=== PATIENT | female | born 1990 | race African-American/Black ===

== ENCOUNTER 2020-09-05 16:11 | Outpatient (CLI) | payer OTHER ==
[2020-09-05 16:57] LABS: ABSOLUTE EOSINOPHILS # (AUTO) 0.1 10^3/uL (0.0-0.6); ABSOLUTE LYMPHOCYTES (AUTO) 1.7 10^3/uL (0.5-4.7); ABSOLUTE MONOCYTES (AUTO) 0.5 10^3/uL (0.1-1.4); ABSOLUTE NEUT (AUTO) 6.1 10^3/uL (1.7-8.2); BASOPHILS % (AUTO) 0.3 % (0-2); EOSINOPHILS % (AUTO) 0.9 % (0-6); HEMATOCRIT 34.7 % (36.0-47.0); HEMOGLOBIN 11.6 g/dL (12.0-15.5); LYMPHOCYTES % (AUTO) 20.4 % (13-45); MEAN CORPUSCULAR HEMOGLOBIN 28.3 pg (27.0-33.4); MEAN CORPUSCULAR HGB CONC 33.5 g/dL (32.0-36.0); MEAN CORPUSCULAR VOLUME 84 fl (80-97); MONOCYTES % (AUTO) 6.1 % (3-13); PLATELET COUNT 201 10^3/uL (150-450); RED BLOOD COUNT 4.12 10^6/uL (3.72-5.28); RED CELL DISTRIBUTION WIDTH 14.3 % (11.5-14.0); SEGMENTED NEUTROPHILS % (AUTO) 72.3 % (42-78); TOTAL CELLS COUNTED % (AUTO) 100 %; WHITE BLOOD COUNT 8.4 10^3/uL (4.0-10.5)
[2020-09-05 17:04] LABS: APPEARANCE,URINE CLOUDY; BILIRUBIN,URINE NEGATIVE (NEGATIVE); COLOR,URINE YELLOW; GLUCOSE, URINE NEGATIVE (NEGATIVE); KETONES,URINE TRACE mg/dL (NEGATIVE); LEUKOCYTE ESTERASE,URINE MODERATE (NEGATIVE); NITRITE,URINE NEGATIVE (NEGATIVE); PROTEIN,URINE 30 mg/dL (NEGATIVE); URINE SPECIFIC GRAVITY 1.018
[2020-09-05 17:18] LABS: URINE AMPHETAMINES SCREEN NEGATIVE; URINE BARBITURATES SCREEN NEGATIVE; URINE BENZODIAZEPINES SCREEN NEGATIVE; URINE COCAINE SCREEN NEGATIVE; URINE MARIJUANA (THC) SCREEN NEGATIVE; URINE METHADONE SCREEN NEGATIVE; URINE PHENCYCLIDINE SCREEN NEGATIVE
[2020-09-05 17:21] LABS: CALCIUM 9.7 mg/dL (8.4-10.2)
[2020-09-05 17:22] LABS: ALBUMIN 3.3 g/dL (3.5-5.0); ALKALINE PHOSPHATASE 73 U/L (38-126); ASPARTATE AMINO TRANSFERASE 24 U/L (14-36); BILIRUBIN,DIRECT 0.2 mg/dL (0.0-0.4); BILIRUBIN,TOTAL 0.3 mg/dL (0.2-1.3); BLOOD UREA NITROGEN 9 mg/dL (7-20); CARBON DIOXIDE 19 mmol/L (22-30); GLUCOSE 143 mg/dL (75-110); TOTAL PROTEIN 5.9 g/dL (6.3-8.2); URIC ACID 4.7 mg/dL (2.5-6.2)
[2020-09-05 17:23] LABS: UR PRO/CREAT RATIO RESULT 0.1 mg/mg (0.0-0.2); URINE CREATININE 248.1 mg/dL (16-327); URINE PROTEIN 13.8 mg/dL (<12)
[2020-09-05 17:28] LABS: ANION GAP 10 (5-19); CHLORIDE 107 mmol/L (98-107)
[2020-09-05] MEDS ORDERED: LABETALOL HCL 200 MG TABLET PO ONE ×2 (18:05→18:59)
[2020-09-05] MEDS ORDERED: LABETALOL HCL 200 MG TABLET ONE (18:14)
== END 2020-09-05 19:00 | disposition home or self-care (01) ==
LOC: LC 16:11
PROVIDERS: ATTEND Obstetrics & Gynecology
DX: O14.93 Unspecified pre-eclampsia, third trimester (principal); Z3A.31 31 weeks gestation of pregnancy
CPT/HCPCS: 36415; 80053; 80307; 81001; 82570; 83615; 84156; 84550; 85025

== ENCOUNTER 2020-09-18 16:07 | Observation (INO) | payer OTHER ==
[2020-09-18] MEDS ORDERED: ACETAMINOPHEN 325 MG TABLET PO PRN (16:11)
[2020-09-18] MEDS ORDERED: NIFEDIPINE 30 MG TAB.ER.24 PO ONE ×2 (16:46→18:04)
[2020-09-18] MEDS ORDERED: HYDRALAZINE HCL INJ/PF 20 MG/1 ML SDV IV ONE ×3 (16:46→19:06)
[2020-09-18] MEDS ORDERED: HYDRALAZINE HCL INJ/PF 20 MG/1 ML SDV ONE ×2 (16:48→19:08)
[2020-09-18] MEDS ORDERED: BETAMET ACET/BETAMET NA INJ 6 MG/1 ML IM ONE (16:57)
[2020-09-18 17:00] LABS: APPEARANCE,URINE SLIGHTLY-CLOUDY; BILIRUBIN,URINE NEGATIVE (NEGATIVE); COLOR,URINE YELLOW; GLUCOSE, URINE NEGATIVE (NEGATIVE); KETONES,URINE NEGATIVE (NEGATIVE); LEUKOCYTE ESTERASE,URINE MODERATE (NEGATIVE); NITRITE,URINE NEGATIVE (NEGATIVE); PROTEIN,URINE NEGATIVE (NEGATIVE); URINE SPECIFIC GRAVITY 1.013; UROBILINOGEN,URINE NEGATIVE mg/dL (<2.0)
[2020-09-18 17:11] LABS: URINE AMPHETAMINES SCREEN NEGATIVE; URINE BARBITURATES SCREEN NEGATIVE; URINE BENZODIAZEPINES SCREEN NEGATIVE; URINE COCAINE SCREEN NEGATIVE; URINE MARIJUANA (THC) SCREEN NEGATIVE; URINE METHADONE SCREEN NEGATIVE; URINE PHENCYCLIDINE SCREEN NEGATIVE
[2020-09-18 17:15] LABS: UR PRO/CREAT RATIO RESULT 0.1 mg/mg (0.0-0.2); URINE CREATININE 104.2 mg/dL (16-327); URINE PROTEIN 11.6 mg/dL (<12)
[2020-09-18 17:16] LABS: HEMATOCRIT 35.6 % (36.0-47.0); HEMOGLOBIN 11.7 g/dL (12.0-15.5); MEAN CORPUSCULAR HEMOGLOBIN 28.1 pg (27.0-33.4); MEAN CORPUSCULAR HGB CONC 32.9 g/dL (32.0-36.0); MEAN CORPUSCULAR VOLUME 85 fl (80-97); PLATELET COUNT 181 10^3/uL (150-450); RED BLOOD COUNT 4.17 10^6/uL (3.72-5.28); RED CELL DISTRIBUTION WIDTH 14.9 % (11.5-14.0); WHITE BLOOD COUNT 10.2 10^3/uL (4.0-10.5)
[2020-09-18 17:40] LABS: ALBUMIN 3.5 g/dL (3.5-5.0); ALKALINE PHOSPHATASE 88 U/L (38-126); ANION GAP 9 (5-19); ASPARTATE AMINO TRANSFERASE 33 U/L (14-36); BILIRUBIN,TOTAL 0.2 mg/dL (0.2-1.3); BLOOD UREA NITROGEN 10 mg/dL (7-20); CALCIUM 9.8 mg/dL (8.4-10.2); CARBON DIOXIDE 21 mmol/L (22-30); CHLORIDE 107 mmol/L (98-107); GLUCOSE 79 mg/dL (75-110); POTASSIUM 4.5 mmol/L (3.6-5.0); TOTAL PROTEIN 6.2 g/dL (6.3-8.2); URIC ACID 5.5 mg/dL (2.5-6.2)
[2020-09-18] MEDS ORDERED: BETAMET ACET/BETAMET NA INJ 6 MG/1 ML ONE (17:41)
--- NOTE | 2020-09-18 18:04 | RADIOLOGY REPORT (SQ) ---
EXAM DESCRIPTION: U/S OB LIMITED IMAGES COMPLETED DATE/TIME: 09/18/2020 5:46 pm REASON FOR STUDY: growth, DIONY, presentation COMPARISON: None. TECHNIQUE: Limited transabdominal grayscale ultrasound for evaluation of specific requested obstetri jerson parameters. LIMITATIONS: None. FINDINGS: CERVICAL LENGTH: 2.8 cm. Closed. DIONY: 18.6 cm. Cm. FHR: 143 beats per minute. PRESENTATION: Cephalic. PLACENTA: Posterior, grade 1. ANATOMY: Not assessed OTHER: Intrauterine gestation of 33 weeks 3 days. IMPRESSION: LIMITED OBSTETRICAL ULTRASOUND WITH MEASURED PARAMETERS DELINEATED ABOVE. Trimester of : Third trimester - 28 weeks to delivery. TECHNICAL DOCUMENTATION: JOB ID: [id number] 2010 [employer]- All Rights Reserved Reading location - IP/workstation name: [email or web address]
--- NOTE | 2020-09-18 18:49 | Admission Physical ---
Datetime Report Generated by CPN: 09/18/2020 18:49 CURRENT ADMISSION Chief Complaint: Sent from OB Office for Evaluation and Treatment - Please Specify Indication for Induction: Not Applicable Admit Impression : , Intrauterine ; No Active Labor; Intact Membranes; Observation/Evaluation Admit Plan: Admit to Unit; Observation/Evaluation ALLERGIES Medication Allergies: No Medication Allergies: No Known Allergies (09/05/2020) Latex: No Latex Allergies OBSTETRICAL HISTORY EDC: 11/03/2020 00:00 : 2 Para: 1 Term: 0 : 1 SAB: 0 IAB: 0 Ectopic: 0 Livin Cesareans: 1 VBACs: 0 Multiple Births: 0 Gestational Diabetes: Yes Rh Sensitization: No Incompetent Cervix: No REYNALDO: No Infertility: No ART Treatment: No Uterine Anomaly: No IUGR: No Hx Previous C/S: No Macrosomia: No Hx Loss/Stillborn: No PIH: No Hx : No Placenta Previa/Abruption: No Depression/PP Depression: No PTL/PROM: No Post Hemorrhage: No Current Procedures: Ultrasound; NST Obstetrical History Comments: G1- c/section 35.5wks severe pre-e G2- CHTN, pre-e SEE RECORDS Alcohol: No Marijuana : No Cocaine: No Other Illicit Drugs: No Cigarettes: Never Smoker. [id number] MEDICAL HISTORY Diabetes: No Diabetes Type: Gestational Diabetes Blood Transfusion: No Pulmonary Disease (Asthma, TB): No Breast Disease: No Hypertension: Yes Founder And President Surgery: No Heart Disease: No Hosp/Surgery: Yes Autoimmune Disorder: No Anesthetic Complications: No Kidney Disease: No Abnormal Pap Smear: No Neuro/Epilepsy: No Psychiatric Disorders: No Other Medical Diseases: No Hepatitis/Liver Disease: No Significant Family History: No Varicosities/Phlebitis: No Trauma/Violence : No Thyroid Dysfunction: No Medical History Comments: umbilical hernia repair as a child, c/s INFECTIOUS HISTORY Gonorrhea: No Genital Herpes: No Chlamydia: No Tuberculosis: No Syphilis: No Hepatitis: No HIV/AIDS Exposure: No Rash or Viral Illness: No HPV: No PHYSICAL EXAM General: Normal HEENT: Normal Neurologic: Normal Thyroid: Deferred Heart: Normal Lungs: Normal Breast: Deferred Back: Normal Abdomen: Normal Genitourinary Exam: Normal Extremities: Normal DTRs: Normal Pelvic Type: Adequate Vital Signs: Reviewed FETUS A EGA: 33.3 Monitoring: External US FHR- Baseline: 130 Variability: Moderate 6-25bpm Accelerations: 15X15 Decelerations: None FHR Category: Category I Presentation: Vertex Admit Comment: 29yo at 33+3ega presents from the office for elevated BP. Pt began her care in [place] and documentation of CHTN noted with elevated BPs mild range on several occasions prior to 20wks. Also noted in transfer records was patient with trace proteinuria prior to 20wks. This is c/w diagnosis of CHTN. On 09/03 she was started on Labetolol for HTN and baseline 24 hr UTP was 405. No baseline 24 hour UTP available from [place] but this appears c/w with CHTN with superimposed preE. She also has a h/o C/s T 35.5 for IUGR/oligo and Severe PreE in 2012. On presentation severe range BPs with good response to addition of po Procardia and 2 IV doses of Hydralazine (5mg x 1 then 10 mg x 1). EFW on 09/03 was 1991g and today is 2184 so adequate interval growth. also c/b GDMA1. BMZ given and will need repeat in 24 hours and will continue to monitor accuchks and add meds if needed. Reviewed case with Dr. Hopkins with MFM and ok to remain here since improved BPs on meds. Also if can remain stable on po meds adjustment and not symptomatic with close outpatient management may be able to proceed past 34wks with delivery definitely at 37wks (sooner if symptoms, unastable BPs or any other concerns). Admit for observation and close monitoring. She desires Repeat C/s and bilateral tubal ligation. She is aware that tubal ligation is permanent form of sterilization and not reversible contraception. She persists indesire for Repeat C/S and BTL and consents signed. PLANS FOR LABOR AND DELIVERY Labor and Delivery: None Pain Management: Spinal Feeding Preference: Breast Benefit of Breast Feed Discussed: Yes Circumcision: Yes INFORMED CONSENT Informed Consent Obtained: Section Delivery; Risks, Benefits and Alternatives Discussed Signature: with User ID: [email or web address]
[2020-09-18] MEDS ORDERED: LABETALOL HCL 200 MG TABLET ONE (18:50)
[2020-09-18] MEDS: LABETALOL HCL 200 MG TABLET PO SCH (18:52)
[2020-09-18 20:27] LABS: CHLAM PCR NOT DETECTED (NOT DETECT)
[2020-09-18] MEDS ORDERED: ACETAMINOPHEN 325 MG TABLET ONE (23:42)
[2020-09-19] MEDS ORDERED: LABETALOL HCL 200 MG TABLET ONE ×3 (05:56→17:23)
[2020-09-19] MEDS: LABETALOL HCL 200 MG TABLET PO SCH (06:03)
--- NOTE | 2020-09-19 10:26 | L&D Progress Notes ---
PROGRESS NOTES Datetime Report Generated by CPN: 09/19/2020 10:25 PROGRESS NOTE Informed Consent Obtained: Section Delivery; Risks, Benefits and Alternatives Discussed Comment: She reports she is feeling well today. Currently her 24 prot and second steroid shot are pending today. LAST VAGINAL EXAM-NURSING Nursing Exam Contractions: pt. denies feeling ctn's FETUS A Presentation: Vertex SIGNATURE SIGNATURE: [id number];[id number] Signature: with User ID: [email or web address]
[2020-09-19] MEDS ORDERED: LABETALOL HCL 200 MG TABLET PO SCH (14:15)
[2020-09-19 16:51] LABS: 24 HOUR URINE PROTEIN RESULT 344 mg/day (42-225); URINE PROTEIN 16.8 mg/dL (<12)
--- NOTE | 2020-09-19 17:17 | PDOC DISCHARGE SUMMARY ---
Impression - Admit/DC Date/PCP Admission Date/Primary Care Provider: 09/18/20 16:59 KLEVER CRESPO MD Discharge Date: 09/19/20 - Discharge Diagnosis (1) Chronic hypertension with superimposed preeclampsia Is this a current diagnosis for this admission?: Yes (2) History of delivery, currently Is this a current diagnosis for this admission?: Yes - Assessment Summary: Patient presented for evaluation for preeclampsia. Her 24-hour urine protein is completed and is below the threshold for preeclampsia at this time. Her blood pressures are adequately treated on Procardia and labetalol. She has been given betamethasone for lung maturity. She will be discharged at this time with close office follow-up. We will have her follow-up Monday or Monday in the office. - Additional Information Resuscitation Status: Full Code Discharge Diet: As Tolerated Discharge Activity: Balance Activity w/Rest Referrals: KLEVER CRESPO MD [Primary Care Provider] - Home Medications: Labetalol HCl [Normodyne 200 mg Tablet] 200 mg PO Q12 09/18/20 Prenat 115/Iron Fum/Folic/Dss [ 19 Tablet] 1 tab PO DAILY 09/18/20 Additional Information: Follow-up Monday or Monday in the office History of Present Illiness History of Present Illness: LEFTY SIMMONS is a 29 year old female Physical Exam - Physical Exam Vital Signs: Intake & Output 09/18/20 09/19/20 09/20/20 06:59 06:59 05:59 Weight 113.5 kg Results Laboratory Results: WBC 10.2 10^3/uL (4.0-10.5) 09/18/20 17:01 RBC 4.17 10^6/uL (3.72-5.28) 09/18/20 17:01 Hgb 11.7 g/dL (12.0-15.5) L 09/18/20 17:01 Hct 35.6 % (36.0-47.0) L 09/18/20 17:01 MCV 85 fl (80-97) 09/18/20 17:01 MCH 28.1 pg (27.0-33.4) 09/18/20 17:01 MCHC 32.9 g/dL (32.0-36.0) 09/18/20 17:01 RDW 14.9 % (11.5-14.0) H 09/18/20 17:01 Plt Count 181 10^3/uL (150-450) 09/18/20 17:01 Sodium 136.6 mmol/L (137-145) L 09/18/20 17:01 Potassium 4.5 mmol/L (3.6-5.0) 09/18/20 17:01 Chloride 107 mmol/L (98-107) 09/18/20 17:01 Carbon Dioxide 21 mmol/L (22-30) L 09/18/20 17:01 Anion Gap 9 (5-19) 09/18/20 17:01 BUN 10 mg/dL (7-20) 09/18/20 17:01 Creatinine 0.68 mg/dL (0.52-1.25) 09/18/20 17:01 Est GFR ( Amer) > 60 (>60) 09/18/20 17:01 Est GFR (MDRD) Non-Af > 60 (>60) 09/18/20 17:01 Glucose 79 mg/dL (75-110) 09/18/20 17:01 POC Glucose 74 mg/dL (70-110) 09/18/20 18:11 Uric Acid 5.5 mg/dL (2.5-6.2) 09/18/20 17:01 Calcium 9.8 mg/dL (8.4-10.2) 09/18/20 17:01 Total Bilirubin 0.2 mg/dL (0.2-1.3) 09/18/20 17:01 Direct Bilirubin 0.0 mg/dL (0.0-0.4) 09/18/20 17:01 Neonat Total Bilirubin Not Reportable 09/18/20 17:01 Neonat Direct Bilirubin Not Reportable 09/18/20 17:01 Neonat Indirect Bili Not Reportable 09/18/20 17:01 AST 33 U/L (14-36) 09/18/20 17:01 ALT 30 U/L (<35) 09/18/20 17:01 Alkaline Phosphatase 88 U/L (38-126) 09/18/20 17:01 Lactate Dehydrogenase 196 U/L (120-246) 09/18/20 17:01 Total Protein 6.2 g/dL (6.3-8.2) L 09/18/20 17:01 Albumin 3.5 g/dL (3.5-5.0) 09/18/20 17:01 Urine Color YELLOW 09/18/20 16:18 Urine Appearance SLIGHTLY-CLOUDY 09/18/20 16:18 Urine pH 6.0 (5.0-9.0) 09/18/20 16:18 Ur Specific Arion 1.013 09/18/20 16:18 Urine Protein NEGATIVE mg/dL (NEGATIVE) 09/18/20 16:18 Urine Glucose (UA) NEGATIVE mg/dL (NEGATIVE) 09/18/20 16:18 Urine Ketones NEGATIVE mg/dL (NEGATIVE) 09/18/20 16:18 Urine Blood NEGATIVE (NEGATIVE) 09/18/20 16:18 Urine Nitrite NEGATIVE (NEGATIVE) 09/18/20 16:18 Urine Bilirubin NEGATIVE (NEGATIVE) 09/18/20 16:18 Urine Urobilinogen NEGATIVE mg/dL (<2.0) 09/18/20 16:18 Ur Leukocyte Esterase MODERATE (NEGATIVE) H 09/18/20 16:18 Urine WBC (Auto) 7 /HPF 09/18/20 16:18 Urine RBC (Auto) 1 /HPF 09/18/20 16:18 Urine Bacteria (Auto) TRACE /HPF 09/18/20 16:18 Squamous Epi Cells Auto 10 /HPF 09/18/20 16:18 Urine Mucus (Auto) RARE /LPF 09/18/20 16:18 Ur 24 Hour Volume 2050 mL 09/19/20 16:18 Urine Creatinine 104.2 mg/dL (16-327) 09/18/20 16:18 Ur Total Protein 24 Hr 344 mg/day (42-225) H 09/19/20 16:18 Protein/Creatinin Ratio 0.1 mg/mg (0.0-0.2) 09/18/20 16:18 Urine Total Protein 16.8 mg/dL (<12) H 09/19/20 16:18 Urine Ascorbic Acid NEGATIVE (NEGATIVE) 09/18/20 16:18 Urine Opiates Screen NEGATIVE 09/18/20 16:18 Urine Methadone Screen NEGATIVE 09/18/20 16:18 Ur Barbiturates Screen NEGATIVE 09/18/20 16:18 Ur Phencyclidine Scrn NEGATIVE 09/18/20 16:18 Ur Amphetamines Screen NEGATIVE 09/18/20 16:18 U Benzodiazepines Scrn NEGATIVE 09/18/20 16:18 Urine Cocaine Screen NEGATIVE 09/18/20 16:18 U Marijuana (THC) Screen NEGATIVE 09/18/20 16:18 Chlamydia DNA (PCR) NOT DETECTED (NOT DETECT) 09/18/20 18:35 N.gonorrhoeae DNA (PCR) NOT DETECTED (NOT DETECT) 09/18/20 18:35 Blood Type A POSITIVE 09/18/20 17:01 Antibody Screen NEGATIVE 09/18/20 17:01 Impressions: Obstetrics Ultrasound 09/18/20 16:50 IMPRESSION: LIMITED OBSTETRICAL ULTRASOUND WITH MEASURED PARAMETERS DELINEATED ABOVE. Trimester of : Third trimester - 28 weeks to delivery. Stroke Is this a Stroke Patient?: No Acute Heart Failure Is this a Heart Failure Patient?: No
[2020-09-19] MEDS ORDERED: NIFEDIPINE 30 MG TAB.ER.24 PO ONE (17:23)
[2020-09-19] MEDS ORDERED: BETAMET ACET/BETAMET NA INJ 6 MG/1 ML ONE (17:25)
[2020-09-19] MEDS ORDERED: BETAMET ACET/BETAMET NA INJ 6 MG/1 ML IM ONE (17:45)
[2020-09-19] MEDS ORDERED: BETAMET ACET/BETAMET NA INJ 6 MG/1 ML IM SCH (17:45)
[2020-09-19] MEDS ORDERED: NIFEDIPINE 30 MG TAB.ER.24 PO SCH (18:00)
== END 2020-09-19 17:55 | disposition home or self-care (01) ==
LOC: LC 16:07 → LR 16:59
PROVIDERS: ADMIT Student in an Organized Health Care Education/Training Program; ATTEND Student in an Organized Health Care Education/Training Program
DX: O11.3 Pre-existing hypertension with pre-eclampsia, third trimester (principal); O34.219 Maternal care for unspecified type scar from previous cesarean delivery; O24.419 Gestational diabetes mellitus in pregnancy, unspecified control; Z3A.33 33 weeks gestation of pregnancy; Z79.899 Other long term (current) drug therapy; Z87.59 Personal history of other complications of pregnancy, childbirth and the puerperium
CPT/HCPCS: 59025; 86900; 86901; 36415; 86850; 82962; 83615; 84156 ×2; 84550; 82570; 85027; 87077; 86592; 80053; 81001; 87081; 80307; 87491; 87591; 76815; G0378 ×2; G0379; J0360; J0702 ×2

== ENCOUNTER 2020-09-25 10:23 | Outpatient (CLI) | payer OTHER ==
[2020-09-25 11:15] LABS: APPEARANCE,URINE CLEAR; BILIRUBIN,URINE NEGATIVE (NEGATIVE); COLOR,URINE STRAW; GLUCOSE, URINE NEGATIVE (NEGATIVE); KETONES,URINE NEGATIVE (NEGATIVE); LEUKOCYTE ESTERASE,URINE NEGATIVE (NEGATIVE); NITRITE,URINE NEGATIVE (NEGATIVE); PROTEIN,URINE NEGATIVE (NEGATIVE); URINE SPECIFIC GRAVITY 1.009; UROBILINOGEN,URINE NEGATIVE mg/dL (<2.0)
[2020-09-25 11:36] LABS: URINE AMPHETAMINES SCREEN NEGATIVE; URINE BARBITURATES SCREEN NEGATIVE; URINE BENZODIAZEPINES SCREEN NEGATIVE; URINE COCAINE SCREEN NEGATIVE; URINE MARIJUANA (THC) SCREEN NEGATIVE; URINE METHADONE SCREEN NEGATIVE; URINE PHENCYCLIDINE SCREEN NEGATIVE
[2020-09-25 11:37] LABS: ALBUMIN 3.3 g/dL (3.5-5.0); ALKALINE PHOSPHATASE 89 U/L (38-126); ANION GAP 10 (5-19); ASPARTATE AMINO TRANSFERASE 29 U/L (14-36); BILIRUBIN,TOTAL 0.1 mg/dL (0.2-1.3); BLOOD UREA NITROGEN 17 mg/dL (7-20); CARBON DIOXIDE 20 mmol/L (22-30); CHLORIDE 106 mmol/L (98-107); GLUCOSE 78 mg/dL (75-110); POTASSIUM 4.5 mmol/L (3.6-5.0); TOTAL PROTEIN 6.1 g/dL (6.3-8.2); URIC ACID 5.2 mg/dL (2.5-6.2)
[2020-09-25 11:40] LABS: UR PRO/CREAT RATIO RESULT 0.2 mg/mg (0.0-0.2); URINE CREATININE 55.7 mg/dL (16-327); URINE PROTEIN 13.1 mg/dL (<12)
[2020-09-25 12:44] LABS: HEMATOCRIT 36.2 % (36.0-47.0); HEMOGLOBIN 12.2 g/dL (12.0-15.5); MEAN CORPUSCULAR HEMOGLOBIN 28.4 pg (27.0-33.4); MEAN CORPUSCULAR HGB CONC 33.7 g/dL (32.0-36.0); MEAN CORPUSCULAR VOLUME 85 fl (80-97); PLATELET COUNT 207 10^3/uL (150-450); RED BLOOD COUNT 4.29 10^6/uL (3.72-5.28); RED CELL DISTRIBUTION WIDTH 14.8 % (11.5-14.0); WHITE BLOOD COUNT 10.9 10^3/uL (4.0-10.5)
--- NOTE | 2020-09-25 13:13 | Non Stress Test Report ---
Non Stress Test Datetime Report Generated by CPN: 09/25/2020 13:13 DEMOGRAPHIC EGA NST: 34.3 INDICATION Indication for Study (NST) Other: pre-e VITAL SIGNS Temperature - NST: 98.5 Pulse - NST: 73 RESP - NST: 22 NBPSYS NST: 126 NBPDIA NST: 68 MONITORING Monitor Explained: Monitor Explained; Test Explained; Patient Verbalized Understanding Time on Monitor: 09/25/2020 10:41 Time off Monitor: 09/25/2020 11:29 NST Duration: 48 NST INTERVENTIONS NST Interventions: None Physician Notified NST: K Barragan CNM BABY A: [id number] BABY A Movement : Present Contraction Frequency : none FHR Baseline : 135 Accelerations : 15X15 Decelerations : None Variability : Moderate 6-25bpm NST Review: Meets Criteria for Reactive NST NST Review and Verified By : FANTA Bell Results: Reactive NST REPORT Report Trigger: Send Report
== END 2020-09-25 13:17 | disposition home or self-care (01) ==
LOC: LC 10:23
PROVIDERS: ATTEND Student in an Organized Health Care Education/Training Program
DX: O13.3 Gestational [pregnancy-induced] hypertension without significant proteinuria, third trimester (principal); O24.419 Gestational diabetes mellitus in pregnancy, unspecified control; Z3A.34 34 weeks gestation of pregnancy
CPT/HCPCS: 36415; 59025; 80053; 80307; 81005; 82570; 83615; 84156; 84550; 85027

== ENCOUNTER 2020-09-26 14:32 | Outpatient (CLI) | payer OTHER ==
[2020-09-26 15:20] LABS: URINE PROTEIN 11.4 mg/dL (<12)
[2020-09-26 15:29] LABS: 24 HOUR URINE PROTEIN RESULT 280 mg/day (42-225)
--- NOTE | 2020-09-26 15:30 | Non Stress Test Report ---
Non Stress Test Datetime Report Generated by CPN: 09/26/2020 15:29 DEMOGRAPHIC Test Number: 1 EGA NST: 34.4 VITAL SIGNS Temperature - NST: 98.2 Pulse - NST: 76 RESP - NST: 20 NBPSYS NST: 120 NBPDIA NST: 66 MONITORING Monitor Explained: Monitor Explained; Test Explained; Patient Verbalized Understanding Time on Monitor: 09/26/2020 14:50 Time off Monitor: 09/26/2020 15:18 NST Duration: 28 NST INTERVENTIONS NST Interventions: PO Hydration; Reposition Patient Physician Notified NST: Mata MD BABY A: [id number] BABY A Movement : Present Contraction Frequency : None FHR Baseline : 135 Accelerations : 15X15 Decelerations : None Variability : Moderate 6-25bpm NST Review: Meets Criteria for Reactive NST NST Review and Verified By : Sisi Newman RN NST Results: Reactive NST COMMENTS NST Comments: MD on unit reviewing FHT strip NST REPORT Report Trigger: Send Report
== END 2020-09-26 15:25 | disposition home or self-care (01) ==
LOC: LC 14:32
PROVIDERS: ATTEND Obstetrics & Gynecology Gynecology
DX: O13.3 Gestational [pregnancy-induced] hypertension without significant proteinuria, third trimester (principal); Z3A.34 34 weeks gestation of pregnancy
CPT/HCPCS: 59025; 84156

== ENCOUNTER 2020-10-02 15:09 | Outpatient (CLI) | payer OTHER ==
[2020-10-02 15:46] LABS: ABSOLUTE BASOPHILS # (AUTO) 0.1 10^3/uL (0.0-0.2); ABSOLUTE EOSINOPHILS # (AUTO) 0.1 10^3/uL (0.0-0.6); ABSOLUTE LYMPHOCYTES (AUTO) 2.5 10^3/uL (0.5-4.7); ABSOLUTE MONOCYTES (AUTO) 0.8 10^3/uL (0.1-1.4); BASOPHILS % (AUTO) 0.9 % (0-2); HEMATOCRIT 37.5 % (36.0-47.0); HEMOGLOBIN 12.4 g/dL (12.0-15.5); LYMPHOCYTES % (AUTO) 23.7 % (13-45); MEAN CORPUSCULAR HGB CONC 33.1 g/dL (32.0-36.0); MEAN CORPUSCULAR VOLUME 85 fl (80-97); PLATELET COUNT 220 10^3/uL (150-450); RED BLOOD COUNT 4.44 10^6/uL (3.72-5.28); RED CELL DISTRIBUTION WIDTH 14.9 % (11.5-14.0); SEGMENTED NEUTROPHILS % (AUTO) 66.4 % (42-78); TOTAL CELLS COUNTED % (AUTO) 100 %; WHITE BLOOD COUNT 10.5 10^3/uL (4.0-10.5)
--- NOTE | 2020-10-02 16:05 | Non Stress Test Report ---
Non Stress Test Datetime Report Generated by CPN: 10/02/2020 16:05 DEMOGRAPHIC EGA NST: 35.3 INDICATION Indication for Study (NST) Other: LC from [facility] VITAL SIGNS Temperature - NST: 98.8 Pulse - NST: 75 RESP - NST: 18 NBPSYS NST: 139 NBPDIA NST: 84 MONITORING Monitor Explained: Monitor Explained; Test Explained; Patient Verbalized Understanding Time on Monitor: 10/02/2020 15:40 Time off Monitor: 10/02/2020 16:03 NST Duration: 23 NST INTERVENTIONS NST Interventions: PO Hydration Physician Notified NST: Dr Hogue BABY A: [id number] BABY A Movement : Present Contraction Frequency : x2 FHR Baseline : 125 Accelerations : 15X15 Decelerations : None Variability : Moderate 6-25bpm NST Review: Meets Criteria for Reactive NST NST Review and Verified By : A. Sedro Woolley RN NST Results: Reactive NST COMMENTS NST Comments: MD on unit NST REPORT Report Trigger: Send Report
[2020-10-02 16:06] LABS: URINE AMPHETAMINES SCREEN NEGATIVE; URINE BARBITURATES SCREEN NEGATIVE; URINE BENZODIAZEPINES SCREEN NEGATIVE; URINE COCAINE SCREEN NEGATIVE; URINE MARIJUANA (THC) SCREEN NEGATIVE; URINE METHADONE SCREEN NEGATIVE; URINE PHENCYCLIDINE SCREEN NEGATIVE
[2020-10-02 16:08] LABS: ALBUMIN 3.6 g/dL (3.5-5.0); ALKALINE PHOSPHATASE 105 U/L (38-126); ANION GAP 9 (5-19); ASPARTATE AMINO TRANSFERASE 28 U/L (14-36); BILIRUBIN,TOTAL 0.2 mg/dL (0.2-1.3); BLOOD UREA NITROGEN 10 mg/dL (7-20); CALCIUM 9.9 mg/dL (8.4-10.2); CARBON DIOXIDE 18 mmol/L (22-30); CHLORIDE 108 mmol/L (98-107); GLUCOSE 79 mg/dL (75-110); POTASSIUM 4.6 mmol/L (3.6-5.0); TOTAL PROTEIN 6.6 g/dL (6.3-8.2); URIC ACID 5.6 mg/dL (2.5-6.2)
[2020-10-02 16:10] LABS: UR PRO/CREAT RATIO RESULT 0.2 mg/mg (0.0-0.2); URINE CREATININE 98.4 mg/dL (16-327); URINE PROTEIN 15.4 mg/dL (<12)
== END 2020-10-02 16:27 | disposition home or self-care (01) ==
LOC: LC 15:09
PROVIDERS: ATTEND Student in an Organized Health Care Education/Training Program
DX: O24.410 Gestational diabetes mellitus in pregnancy, diet controlled (principal); O16.3 Unspecified maternal hypertension, third trimester; Z3A.35 35 weeks gestation of pregnancy
CPT/HCPCS: 36415; 59025; 80053; 80307; 82570; 83615; 84156; 84550; 85025

== ENCOUNTER 2020-10-03 16:38 | Outpatient (CLI) | payer OTHER ==
[2020-10-03 17:53] LABS: 24 HOUR URINE PROTEIN RESULT 222 mg/day (42-225); URINE PROTEIN 12.9 mg/dL (<12)
--- NOTE | 2020-10-03 18:44 | Non Stress Test Report ---
Non Stress Test Datetime Report Generated by CPN: 10/03/2020 18:43 DEMOGRAPHIC EGA NST: 35.4 URINE RESULTS Urine Protein, NST: Positive Urine Ketones - NST: Negative Urine Glucose - NST: Negative Urine Blood - NST: Negative MONITORING Monitor Explained: Monitor Explained; Test Explained; Patient Verbalized Understanding Time on Monitor: 10/03/2020 16:55 Time off Monitor: 10/03/2020 17:15 NST Duration: 20 NST INTERVENTIONS NST Interventions: PO Hydration Physician Notified NST: MRowe BABY A: [id number] BABY A Movement : Present Contraction Frequency : occ FHR Baseline : 135 Accelerations : 15X15 Decelerations : None Variability : Moderate 6-25bpm NST Review: Meets Criteria for Reactive NST NST Review and Verified By : SamanRNC NST Results: Reactive NST REPORT Report Trigger: Send Report
== END 2020-10-03 18:20 | disposition home or self-care (01) ==
LOC: LC 16:38
PROVIDERS: ATTEND Obstetrics & Gynecology
DX: O16.3 Unspecified maternal hypertension, third trimester (principal); Z3A.35 35 weeks gestation of pregnancy
CPT/HCPCS: 84156

== ENCOUNTER 2020-10-06 10:38 | Outpatient (CLI) | payer OTHER ==
--- NOTE | 2020-10-06 11:20 | Non Stress Test Report ---
Non Stress Test Datetime Report Generated by CPN: 10/06/2020 11:19 DEMOGRAPHIC EGA NST: 36.0 INDICATION Indication for Study (NST) Other: repeat NST from office VITAL SIGNS Temperature - NST: 97.1 MONITORING Monitor Explained: Monitor Explained; Test Explained; Patient Verbalized Understanding Time on Monitor: 10/06/2020 10:45 Time off Monitor: 10/06/2020 11:18 NST Duration: 33 NST INTERVENTIONS NST Interventions: PO Hydration; Reposition Patient Physician Notified NST: A Hernandez CNM BABY A Movement : Present Contraction Frequency : 0 FHR Baseline : 130 Accelerations : 15X15 Decelerations : None Variability : Moderate 6-25bpm NST Review: Meets Criteria for Reactive NST NST Review and Verified By : Yadi Eduardo RN NST Results: Reactive NST REPORT Report Trigger: Send Report
== END 2020-10-06 11:30 | disposition home or self-care (01) ==
LOC: LC 10:38
PROVIDERS: ATTEND Obstetrics & Gynecology Gynecology
DX: O16.3 Unspecified maternal hypertension, third trimester (principal); Z3A.36 36 weeks gestation of pregnancy
CPT/HCPCS: 59025

== ENCOUNTER 2020-10-09 11:10 | Outpatient (CLI) | payer OTHER ==
[2020-10-09] MEDS ORDERED: BETAMET ACET/BETAMET NA INJ 6 MG/1 ML ONE (11:45)
[2020-10-09] MEDS ORDERED: BETAMET ACET/BETAMET NA INJ 6 MG/1 ML IM ONE (11:49)
[2020-10-09 12:26] LABS: APPEARANCE,URINE SLIGHTLY-CLOUDY; BILIRUBIN,URINE NEGATIVE (NEGATIVE); COLOR,URINE YELLOW; GLUCOSE, URINE NEGATIVE (NEGATIVE); KETONES,URINE NEGATIVE (NEGATIVE); LEUKOCYTE ESTERASE,URINE SMALL (NEGATIVE); NITRITE,URINE NEGATIVE (NEGATIVE); PROTEIN,URINE 30 mg/dL (NEGATIVE); URINE SPECIFIC GRAVITY 1.018
[2020-10-09] MEDS ORDERED: LABETALOL HCL 200 MG TABLET PO ONE (12:31)
[2020-10-09] MEDS ORDERED: LABETALOL HCL 200 MG TABLET ONE (12:36)
[2020-10-09 12:42] LABS: UR PRO/CREAT RATIO RESULT 0.1 mg/mg (0.0-0.2); URINE CREATININE 251.8 mg/dL (16-327); URINE PROTEIN 14.5 mg/dL (<12)
[2020-10-09 13:16] LABS: ABSOLUTE BASOPHILS # (AUTO) 0.1 10^3/uL (0.0-0.2); ABSOLUTE EOSINOPHILS # (AUTO) 0.1 10^3/uL (0.0-0.6); ABSOLUTE MONOCYTES (AUTO) 0.7 10^3/uL (0.1-1.4); ABSOLUTE NEUT (AUTO) 6.5 10^3/uL (1.7-8.2); BASOPHILS % (AUTO) 1.3 % (0-2); EOSINOPHILS % (AUTO) 1.1 % (0-6); HEMATOCRIT 37.3 % (36.0-47.0); HEMOGLOBIN 12.4 g/dL (12.0-15.5); LYMPHOCYTES % (AUTO) 21.2 % (13-45); MEAN CORPUSCULAR HEMOGLOBIN 28.4 pg (27.0-33.4); MEAN CORPUSCULAR HGB CONC 33.2 g/dL (32.0-36.0); MEAN CORPUSCULAR VOLUME 86 fl (80-97); MONOCYTES % (AUTO) 6.9 % (3-13); PLATELET COUNT 192 10^3/uL (150-450); RED BLOOD COUNT 4.35 10^6/uL (3.72-5.28); RED CELL DISTRIBUTION WIDTH 14.8 % (11.5-14.0); SEGMENTED NEUTROPHILS % (AUTO) 69.5 % (42-78); TOTAL CELLS COUNTED % (AUTO) 100 %; WHITE BLOOD COUNT 9.4 10^3/uL (4.0-10.5)
--- NOTE | 2020-10-09 13:25 | Non Stress Test Report ---
Non Stress Test Datetime Report Generated by CPN: 10/09/2020 13:24 DEMOGRAPHIC EGA NST: 36.3 INDICATION Indication for Study (NST) Other: IUP at 36.3 VITAL SIGNS Temperature - NST: 98.4 Pulse - NST: 82 RESP - NST: 18 NBPSYS NST: 158 NBPDIA NST: 92 MONITORING Monitor Explained: Monitor Explained; Test Explained; Patient Verbalized Understanding Time on Monitor: 10/09/2020 12:45 Time off Monitor: 10/09/2020 13:13 NST Duration: 28 NST INTERVENTIONS NST Interventions: PO Hydration Physician Notified NST: A. Hernandez, CNM Physician Notified NST: A. Hernandez, CNM BABY A Movement : Present Contraction Frequency : 0 FHR Baseline : 120 Accelerations : 15X15 Decelerations : None Variability : Moderate 6-25bpm NST Review: Meets Criteria for Reactive NST NST Review and Verified By : FANTA Bell Results: Reactive NST REPORT Report Trigger: Send Report
[2020-10-09 13:43] LABS: ALBUMIN 3.5 g/dL (3.5-5.0); ALKALINE PHOSPHATASE 106 U/L (38-126); ANION GAP 9 (5-19); ASPARTATE AMINO TRANSFERASE 40 U/L (14-36); BILIRUBIN,DIRECT 0.1 mg/dL (0.0-0.4); BILIRUBIN,TOTAL 0.3 mg/dL (0.2-1.3); BLOOD UREA NITROGEN 12 mg/dL (7-20); CALCIUM 10.1 mg/dL (8.4-10.2); CARBON DIOXIDE 20 mmol/L (22-30); CHLORIDE 107 mmol/L (98-107); GLUCOSE 120 mg/dL (75-110); POTASSIUM 4.3 mmol/L (3.6-5.0); TOTAL PROTEIN 6.3 g/dL (6.3-8.2); URIC ACID 6.3 mg/dL (2.5-6.2)
== END 2020-10-09 14:05 | disposition home or self-care (01) ==
LOC: LC 11:10
PROVIDERS: ATTEND Student in an Organized Health Care Education/Training Program
DX: O13.3 Gestational [pregnancy-induced] hypertension without significant proteinuria, third trimester (principal); Z20.828 Contact with and (suspected) exposure to other viral communicable diseases; Z3A.36 36 weeks gestation of pregnancy
CPT/HCPCS: 36415; 83615; 84156; 84550; 82570; 85025; 87635; 81005; 80053; J0702; C9803; 59025; 94760; 96372

== ENCOUNTER 2020-10-12 11:41 | Outpatient (CLI) | payer OTHER ==
[2020-10-12] MEDS ORDERED: ACETAMINOPHEN 325 MG TABLET PO PRN (11:49)
[2020-10-12 12:45] LABS: APPEARANCE,URINE SLIGHTLY-CLOUDY; BILIRUBIN,URINE NEGATIVE (NEGATIVE); COLOR,URINE YELLOW; GLUCOSE, URINE NEGATIVE (NEGATIVE); KETONES,URINE NEGATIVE (NEGATIVE); LEUKOCYTE ESTERASE,URINE LARGE (NEGATIVE); NITRITE,URINE NEGATIVE (NEGATIVE); PROTEIN,URINE 30 mg/dL (NEGATIVE); URINE SPECIFIC GRAVITY 1.009; UROBILINOGEN,URINE NEGATIVE mg/dL (<2.0)
[2020-10-12 13:19] LABS: HEMATOCRIT 36.7 % (36.0-47.0); HEMOGLOBIN 11.9 g/dL (12.0-15.5); MEAN CORPUSCULAR HEMOGLOBIN 27.6 pg (27.0-33.4); MEAN CORPUSCULAR HGB CONC 32.5 g/dL (32.0-36.0); MEAN CORPUSCULAR VOLUME 85 fl (80-97); PLATELET COUNT 197 10^3/uL (150-450); RED BLOOD COUNT 4.31 10^6/uL (3.72-5.28); WHITE BLOOD COUNT 12.7 10^3/uL (4.0-10.5)
[2020-10-12 13:21] LABS: URINE AMPHETAMINES SCREEN NEGATIVE; URINE BARBITURATES SCREEN NEGATIVE; URINE BENZODIAZEPINES SCREEN NEGATIVE; URINE COCAINE SCREEN NEGATIVE; URINE MARIJUANA (THC) SCREEN NEGATIVE; URINE METHADONE SCREEN NEGATIVE; URINE PHENCYCLIDINE SCREEN NEGATIVE
[2020-10-12 13:37] LABS: UR PRO/CREAT RATIO RESULT 0.3 mg/mg (0.0-0.2); URINE CREATININE 83.4 mg/dL (16-327); URINE PROTEIN 25.3 mg/dL (<12)
[2020-10-12 13:43] LABS: ALBUMIN 3.4 g/dL (3.5-5.0); ALKALINE PHOSPHATASE 98 U/L (38-126); ANION GAP 13 (5-19); ASPARTATE AMINO TRANSFERASE 45 U/L (14-36); BILIRUBIN,DIRECT 0.1 mg/dL (0.0-0.4); BILIRUBIN,TOTAL 0.2 mg/dL (0.2-1.3); BLOOD UREA NITROGEN 15 mg/dL (7-20); CALCIUM 9.6 mg/dL (8.4-10.2); CARBON DIOXIDE 17 mmol/L (22-30); CHLORIDE 107 mmol/L (98-107); GLUCOSE 106 mg/dL (75-110); TOTAL PROTEIN 6.2 g/dL (6.3-8.2); URIC ACID 6.4 mg/dL (2.5-6.2)
== END 2020-10-12 14:18 | disposition home or self-care (01) ==
LOC: LC 11:41
PROVIDERS: ATTEND Obstetrics & Gynecology
DX: O13.3 Gestational [pregnancy-induced] hypertension without significant proteinuria, third trimester (principal); Z3A.36 36 weeks gestation of pregnancy
CPT/HCPCS: 36415; 59025; 80053; 80307; 81005; 82570; 83615; 84156; 84550; 85027

== ENCOUNTER 2020-10-14 05:17 | Inpatient (IN) | payer OTHER ==
[2020-10-14] MEDS ORDERED: CEFAZOLIN 2 GM/D5W RTU 2 GM/50 ML RTUPB IV PRN (06:02)
[2020-10-14] MEDS ORDERED: RINGERS SOLUTION,LACTATED 1,000 ML IV ONE (06:30)
[2020-10-14] MEDS ORDERED: RINGERS SOLUTION,LACTATED 1,000 ML IV PRN ×2 (06:31→08:33)
[2020-10-14] MEDS ORDERED: FENTANYL CITRATE INJ/PF 100 MCG/2 ML AMPUL ONE (07:18)
[2020-10-14] MEDS ORDERED: OXYTOCIN 10 UNIT/ML VIAL ONE (07:18)
[2020-10-14] MEDS ORDERED: PHENYLEPHRINE HCL INJ/PF 10 MG/1 ML SDV ONE (07:18)
[2020-10-14] MEDS ORDERED: EPHEDRINE SULFATE INJ 50 MG/1 ML AMPULE ONE (07:18)
[2020-10-14] MEDS ORDERED: MIDAZOLAM 2 MG/2 ML INJ ONE (07:18)
[2020-10-14] MEDS ORDERED: KETOROLAC TROMETHAMINE INJ/PF 30 MG/1 ML SDV ONE (07:18)
[2020-10-14] MEDS ORDERED: ONDANSETRON HCL INJ/PF 4 MG/2 ML SDV ONE (07:19)
[2020-10-14] MEDS ORDERED: ACETAMINOPHEN 1,000 MG/100 ML RTUPB IV ONE (07:19)
[2020-10-14] MEDS ORDERED: METHYLERGONOVINE MALEATE INJ/PF 0.2 MG/1 ML AMPULE ONE (07:19)
[2020-10-14] MEDS ORDERED: OXYCODONE-ACETAMINOPHEN 5-325 MG TABLET PO PRN ×3 (08:18→08:33)
[2020-10-14] MEDS ORDERED: MEPERIDINE HCL/PF INJ 25 MG/1 ML DISP.SYRIN IV PRN (08:18)
[2020-10-14] MEDS ORDERED: FENTANYL CITRATE INJ/PF 100 MCG/2 ML AMPUL IV PRN ×3 (08:18)
[2020-10-14] MEDS ORDERED: DIPHENHYDRAMINE HCL 50 MG/ML VIAL IV PRN (08:18)
[2020-10-14] MEDS ORDERED: ONDANSETRON HCL INJ/PF 4 MG/2 ML SDV IV PRN (08:18)
[2020-10-14] MEDS ORDERED: MORPHINE SULFATE 10 MG/ML INJ IV PRN (08:18)
[2020-10-14] MEDS ORDERED: PROMETHAZINE HCL INJ 25 MG/1 ML VIAL IV PRN ×3 (08:18→08:33)
--- NOTE | 2020-10-14 08:29 | PDOC DELIVERY SUMMARY ---
Delivery Summary - Maternal Hx : II Hx # Pregnancies: 1 PIYUSH: 11/03/20 Risk Factors: Previous , Gestational Diabetes, Induced HTN, Pre-Eclampsia, Other - desire for sterilization
[2020-10-14] MEDS ORDERED: OXYTOCIN/0.9 % SODIUM CHLORIDE 30 UNIT/500 ML RTUINJ IV PRN (08:33)
[2020-10-14] MEDS ORDERED: SIMETHICONE 80 MG TAB.CHEW PO PRN (08:33)
[2020-10-14] MEDS ORDERED: MORPHINE SULFATE 10 MG/ML INJ IM PRN (08:33)
[2020-10-14] MEDS ORDERED: MEASLES,MUMPS&RUBELLA VACC/PF 0.5 ML VIAL SUBCUT PRN (08:33)
[2020-10-14] MEDS ORDERED: ACETAMINOPHEN 325 MG TABLET PO PRN (08:33)
[2020-10-14] MEDS ORDERED: ACETAMINOPHEN 1,000 MG/100 ML RTUPB IV PRN (08:33)
[2020-10-14] MEDS ORDERED: DIPH/PERTUSS(ACELL)/TETANUS VAC/PF 0.5 ML SYR (>=10YO) IM PRN (08:33)
--- NOTE | 2020-10-14 08:33 | Operative Report ---
Operative Report DATE OF SURGERY: 10/14/20 PREOPERATIVE DIAGNOSIS: IUP 37 weeks GDM chronic hypertension with PE and desire for sterilization POSTOPERATIVE DIAGNOSIS: Same OPERATION: Repeat low transverse and bilateral tubal occlusion SURGEON: RODRICK JUAREZ ANESTHESIA: Spinal TISSUE REMOVED OR ALTERED: Placenta ESTIMATED BLOOD LOSS: Less than 1000 cc PROCEDURE: The patient was taken to the operating room where spinal anesthesia was obtained and found to be adequate. She was then prepped and draped in the normal sterile fashion and placed in the dorsal supine position with a leftward tilt. A Pfannenstiel skin incision was then made and carried through to the underlying layers of the fascia with the scalpel. The fascia was incised in the midline and the incision extended laterally with the Raza scissors. The superior aspect of the fascial incision was then grasped with Alis clamps elevated and the underlying rectus muscles dissected off bluntly. Attention was then turned to the inferior aspect of the fascial incision which in a similar fashion was grasped, tented up with Jakob clamps, and the rectus muscles disse cted off bluntly. The rectus muscles were then in the midline and the peritoneum at the amount identified and entered bluntly. The peritoneal incision was then extended superiorly and inferiorly with good visualization of the bladder. [The bladder blade was inserted and the vesicouterine peritoneum identified grasped with Luxembourger pickups and entered sharply with the Metzenbaum scissors. His incision was then extended laterally with the Metzenbaum scissors and a bladder flap created digitally. The bladder blade was then reinserted and the lower uterine segment incised in a transverse fashion with the scalpel. The uterine incision was then extended bluntly. The bladder blade was removed and the infant's head was delivered from cephalic presentation atraumatically. The nose and mouth were suctioned and the cord doubly clamped and cut. And the infant was handed off to waiting pediatricians. The placenta was then delivered manully and the uterus exteriorized and cleared of all clots and debris. The uterine incision was then repaired with 1-0 Vicryl in a running locked fashion. A second layer of the same suture was used to obtain hemostasis via imbrication of the initial layer. The uterus was returned to the patient's abdomen. Right fallopian tube was occluded using Filshie clip in the mid proximal portion and the procedure repeated on the left with good purchase of tissue noted on both clamps. The gutters were cleared of all clots and debris. All operative sites were noted to be hemostatic. The fascia was reapproximated with 0 Vicryl in a running fashion from each lateral edge to the midline. The patient tolerated the procedure well. Sponge lap needle and instrument counts are correct -2. 2 g of Ancef were given prior to skin incision. The patient was taken to the recovery area awake and in stable condition.
[2020-10-14] MEDS ORDERED: OXYTOCIN/0.9 % SODIUM CHLORIDE 30 UNIT/500 ML RTUINJ ONE (09:22)
[2020-10-14] MEDS ORDERED: LABETALOL HCL 200 MG TABLET ONE (09:22)
[2020-10-14] MEDS ORDERED: HYDRALAZINE HCL INJ/PF 20 MG/1 ML SDV ONE (09:48)
--- NOTE | 2020-10-14 09:55 | Birth Certificate Data ---
Cert Data Datetime Report Generated by CPN: 10/14/2020 09:55 CERTIFICATE DATA Delivery Provider: Royer Mata MD (10/14/2020 08:52:Hellen Eduardo RN) 48a. Number of Prev Live Births: 1 (09/05/2020 16:13:Yanique Monroe RN) 48b. Now Livin (09/05/2020 16:13:Yanique Monroe RN) 48c. Live Births Now : 0 (09/05/2020 16:13:QS system process) 48d. Date of Last Live : 10/08/2013 00:00 (09/05/2020 16:13:Yanique Monroe RN) 48e. Losses: 0 (09/05/2020 16:13:Yanique Monroe RN) RISK FACTORS IN THIS 49a. Diabetes: No (09/05/2020 16:13:Hellen Eduardo RN) Type of Diabetes: Gestational Diabetes (09/05/2020 16:13:Yanique Monroe RN) 49b. Hypertension: Yes (09/05/2020 16:13:Yanique Monroe RN) Type of Hypertension: Chronic (09/05/2020 16:13:Hellen Eduardo RN) 49c. Previous Births: 1 (09/05/2020 16:13:Sirena Newman RN) 49d. Stillborns: No (09/05/2020 16:13:Hellen Eduardo RN) 49d. IUGR: No (09/05/2020 16:13:Hellen Eduardo RN) 49e. Infertility Treatment: No (09/05/2020 16:13:Hellen Eduardo RN) 49f. Previous Cesareans: 1 (09/05/2020 16:13:Sirena Newman RN) Mother's Height 50b. Height Inches: 61 (10/14/2020 09:15:QS system process) Mother's Weight 51a. Pre- Weight (lbs): 222 (09/05/2020 16:13:Yanique Monroe RN) 51b. Weight at Delivery (lbs): 242 (10/14/2020 09:15:QS system process) 52. Dt Last Normal Menses Began: 01/28/2020 00:00 (09/05/2020 16:13:Yanique Monroe RN) Infections Present/Treated 53a. Gonorrhea: No (09/05/2020 16:13:Hellen Eduardo RN) Results this Hospital Visit : Negative (09/05/2020 16:13:Brooklynn Tsai RN) 53b. Syphilis: No (09/05/2020 16:13:Hellen Eduardo RN) Results this Hospital Visit: NONREACTIVE (09/18/2020 17:01:QS system process) 53c. Chlamydia: No (09/05/2020 16:13:Hellen Eduardo RN) Results this Hospital Visit: Negative (09/05/2020 16:13:Brooklynn Tsai RN) 53d. Hepatitis B: No (09/05/2020 16:13:Hellen Eduardo RN) Results this Hospital Visit: Negative (09/05/2020 16:13:Sirena Newman RN) 53e. Hepatitis C: Negative (09/05/2020 16:13:Sirena Newman RN) 53h. Mother Tested for HBsAG: Yes (09/05/2020 16:13:Sirena Newman RN) 53i. Date Tested: 03/18/2020 00:00 (09/05/2020 16:13:Sirena Newman RN) 53j. Test Result: Negative (09/05/2020 16:13:Sirena Newman RN) Obstetric Procedures 54a, b, c. Obstetric Procedures: Ultrasound; NST (09/05/2020 16:13:Hellen Eduardo RN) Cigarette Smoking Cigarette Smoking: Never Smoker. [id number] (09/05/2020 16:13:Hellen Eduardo RN) 55a. 3 Months Before Preg - Ci (09/05/2020 16:13:Hellen Eduardo RN) 55b. 1st Trimester of Preg- Ci (09/05/2020 16:13:Hellen Eduardo RN) 55c. 2nd Trimester of Preg- Ci (09/05/2020 16:13:Hellen Eduardo RN) 55d. 3rd Trimester of Preg- Ci (09/05/2020 16:13:Hellen Eduardo RN) Onset of Labor 56a. PROM >12 Hrs: 0.00 (09/05/2020 16:13:QS system process) 57a. Induction of Labor: N/A (09/05/2020 16:13:Hellen Eduardo RN) 57c. Non-Vertex Presentation A: Vertex (09/05/2020 16:13:Hellen Eduardo RN) 57d. Steroids - Lung Mat: > 24 Hours before Delivery (09/05/2020 16:13:Hellen Eduardo RN) 57d. Steroids - Lung Mat: Celestone 12mg IM - Dose 1 (10/09/2020 11:47:Priscilla Gonzáles RN) 57d. Steroids - Lung Mat: Not Applicable (09/05/2020 16:13:Hellen Eduardo RN) 57e. Antibiotics During Labor: 10/14/2020 07:53 (09/05/2020 16:13:Hellen Eduardo RN) 57f. Mat Ch[place] or Temp >100.4: 98.4 (09/05/2020 16:13:Hellen Eduardo RN) 57g. Moderate/Heavy Meconium: Clear (09/05/2020 16::Hellen Eduardo RN) 57h. Intolerance of Labor: Severe PIH, Unfavorable Cervix (09/05/2020 16::Hellen Eduardo RN) : N/A (09/05/2020 16::Hellen Eduardo RN) 57i. Epidural/Spinal Anesthesia: None (09/05/2020 16:13:Hellen Eduardo RN) Method of Delivery 58a. Forceps - Unsuccessful A: N/A (09/05/2020 16:13:Hellen Eduardo RN) 58b. Vacuum - Unsuccessful A: N/A (09/05/2020 16:13:Hellen Eduardo RN) 58c. Presentation at 58c. Presentation at - A : Vertex (09/05/2020 16:13:Hellen Eduardo RN) 58c. Presentation at - A : N/A (09/05/2020 16:13:Hellen Sales, RN) 58c. Presentation at - A : Cephalic (09/05/2020 16:13:Hellen Sales, RN) Final Route and Method of Del 58d. Baby A Route/Delivery: (09/05/2020 16:13:Hellen Eduardo RN) 58e. Trial of Labor Attempted: No (09/05/2020 16:13:Hellen Eduardo RN) 58e. Trial of Labor Attempted A: N/A (09/05/2020 16:13:Hellen Eduardo RN) 58e. Trial of Labor Attempted B: N/A (09/05/2020 16:13:Hellenwalt Eduardo, RN) Maternal Morbidity 59b. 3rd or 4th Degree Lacs: None (09/05/2020 16:13:Hellen Sales, RN) Birthweight Baby A: 2180 (09/05/2020 16:13:Venessa Dana Moon RN) 60a. Pounds : 4 (09/05/2020 16:13:QS system process) 60b. Ounces: 13 (09/05/2020 16:13:QS system process) 61. GA at Delivery Baby A: 37.1 (09/05/2020 16:13:Hellen Jayce, RN) : Early Term- 37- 38.6 Weeks (09/05/2020 16:13:QS system process) 62a. 5 Minute Baby A: 9 (09/05/2020 16:13:QS system process)
--- NOTE | 2020-10-14 09:55 | Delivery Summary ---
Del Sum A-C Datetime Report Generated by CPN: 10/14/2020 09:55 DELIVERY PERSONNEL DELIVERY PERSONNEL: [id number] Delivery Doctor:: Royer Mata MD ORCHARD HAND:: Judith Ward CRNA Dynamics Ax Technical Architect:: Hellen Eduardo RN Neonatal Nurse Practitioner:: AFIA Villela Nursery Nurse:: Yoli Yo RN Knitting Inspector/LIGHT ARMORED RECONNAISSANCE OFFICER: Eva Aranda CST Knitting Inspector/LIGHT ARMORED RECONNAISSANCE OFFICER: Jocelyn Aguilar, SOLAR POOL HEATING INSTALLER MATERNAL INFORMATION Delivery Anesthesia: Spinal Medications After Delivery: Pitocin Drip 20 Units/1000ml NSS Delivery QBL: 195 Maternal Complications: Other Complication Details: Pre-eclampsia, GDM LABOR SUMMARY EDC: 11/03/2020 00:00 No. Babies in Womb: 1 Attempted: No Labor Anesthesia: None LABOR INFORMATION Reason for Induction: Not Applicable Oxytocin: N/A Group B Beta Strep: positive Antibiotics # of Doses: 1 Antibiotics Time of Last Dose: 10/14/2020 07:53 Name of Antibiotic Given: Ancef 2g Steroids Given: > 24 Hours before Delivery Reason Steroids Not Administered: Not Applicable MEMBRANES Membranes Rupture Method: Artificial Rupture of Membranes: 10/14/2020 08:07 Length of Rupture (hr): 0.00 Amniotic Fluid Color: Clear Amniotic Fluid Amount: Small Amniotic Fluid Odor: Normal STAGES OF LABOR Stage 3 hr: 0 Stage 3 min: 1 VAGINAL DELIVERY Episiotomy: None Laceration #1: None Laceration Extension #1: N/A Laceration Repair: Not Applicable Sharps Count Correct: N/A CSECTION DELIVERY Primary Indication: Severe PIH, Unfavorable Cervix Secondary Indication: N/A CSection Urgency: Scheduled CSection Incidence: Repeat Labor: No Labor Elective: Nonelective CSection Incision: Lower Uterine Transverse CSection Incision- Other: Vianeyie clips BABY A INFORMATION Delivery Date/Time: 10/14/2020 08:07 Method of Delivery: Nurse Controlled Delivery: No Born in Route : No : N/A Forceps: N/A Vacuum Extraction: N/A Shoulder Dystocia : No PRESENTATION/POSITION BABY A Presentation: Cephalic Cephalic Presentation: Vertex Vertex Position: Right Occipital Anterior Breech Presentation: N/A PLACENTA INFORMATION BABY A Placenta Delivery Time : 10/14/2020 08:08 Placenta Method of Delivery: Manual Removal Placenta Status: Delivered SCORES BABY A Heart Rate 1 min: >100 bpm Resp Effort 1 min: Good Cry Reflex Irritability 1 min: Cough or Sneeze or Pulls Away Muscle Tone 1 min: Active Motion Color 1 min: Blue/Pale SCORE 1 MIN: 8 Heart Rate 5 min: >100 bpm Resp Effort 5 min: Good Cry Reflex Irritability 5 min: Cough or Sneeze or Pulls Away Muscle Tone 5 min: Active Motion Color 5 min: Body Albright, Extremities Blue SCORE 5 MIN: 9 INFANT INFORMATION BABY A Gestational Age at Delivery: 37.1 Gestational Status: Early Term- 37- 38.6 Weeks Infant Outcome : Liveborn Condition : Stable Infant Sex: Male IDENTIFICATION BABY A Infant Verification Date/Time: 10/14/2020 08:15 ID Band Number: [id number] Mother's Name Verified: Yes RN Verifying Infant: MRoberto Eduardo, RN Additional Verifying Personnel: S. Srinath, RN WEIGHT/LENGTH BABY A Birthweight (gm): 2180 Infant Weight (lb): 4 Infant Weight (oz): 13 Length (in): 18.00 Infant Length (cm): 45.72 CORD INFORMATION BABY A No. Cord Vessels: 3 Nuchal Cord : N/A Cord Blood Taken: Yes-For Storage (Mom's Blood type +) Suction: Mouth; Nose BABY B INFORMATION : N/A
[2020-10-14] MEDS ORDERED: HYDRALAZINE HCL INJ/PF 20 MG/1 ML SDV IV ONE (10:00)
[2020-10-14] MEDS: DOCUSATE SODIUM 100 MG CAPSULE PO SCH ×2 (11:58→17:43)
[2020-10-14] MEDS: PRENATAL VITAMIN W DHA CAPSULE PO SCH (11:58)
[2020-10-14] MEDS ORDERED: KETOROLAC TROMETHAMINE INJ/PF 30 MG/1 ML SDV IV SCH (14:00)
[2020-10-14] MEDS: LABETALOL HCL 200 MG TABLET PO SCH ×3 (17:43→21:38)
[2020-10-15] MEDS: KETOROLAC TROMETHAMINE INJ/PF 30 MG/1 ML SDV IV SCH ×2 (01:09→10:33)
[2020-10-15] MEDS: LABETALOL HCL 200 MG TABLET PO SCH ×3 (05:45→22:33)
[2020-10-15 07:03] LABS: HEMATOCRIT 33.1 % (36.0-47.0); HEMOGLOBIN 10.8 g/dL (12.0-15.5); MEAN CORPUSCULAR HEMOGLOBIN 27.7 pg (27.0-33.4); MEAN CORPUSCULAR HGB CONC 32.5 g/dL (32.0-36.0); MEAN CORPUSCULAR VOLUME 85 fl (80-97); PLATELET COUNT 180 10^3/uL (150-450); RED BLOOD COUNT 3.88 10^6/uL (3.72-5.28); RED CELL DISTRIBUTION WIDTH 14.9 % (11.5-14.0); WHITE BLOOD COUNT 12.7 10^3/uL (4.0-10.5)
[2020-10-15] MEDS: PRENATAL VITAMIN W DHA CAPSULE PO SCH (10:32)
[2020-10-15] MEDS: DOCUSATE SODIUM 100 MG CAPSULE PO SCH ×2 (10:34→18:25)
--- NOTE | 2020-10-15 12:30 | PDOC PROGRESS REPORT ---
Subjective-OB Progress Note for:: 10/15/20 Subjective: Pt doing well, no concerns. She reports light bleeding, reg diet, +flatus and voiding w/o difficulty. Physical Exam (OB) Vital Signs: Temp Pulse Resp BP Pulse Ox 98.0 F 80 16 142/85 H 99 10/15/20 11:34 10/15/20 11:34 10/15/20 11:34 10/15/20 11:34 10/15/20 11:34 Intake & Output 10/14/20 10/15/20 10/16/20 06:59 06:59 06:59 Intake Total 2713 380 Output Total 3325 Balance -612 380 Weight 110.2 kg - PIH/Pre-Eclampsia DTR's: 2 + Clonus: Negative Headache: Absent Epigastric Pain: No Visual Changes: No - Dressing Removed: Yes Incision: Dressing - Maternal Morbidity 59. Maternal Morbidity (serious complications experinced by the mother associated with labor and delivery: None of the above - Lochia Lochia Amount: Small 10-25 ml Lochia Color: Rubra/Red - Abdomen Description: Soft, Round Hernia Present: No Fundal Description: Firm, Midline Fundal Height: u/u - u/2 Objective-Diagnostic Laboratory: 10/15/20 06:33 10/15/20 06:33 WBC 12.7 H RBC 3.88 Hgb 10.8 L Hct 33.1 L MCV 85 MCH 27.7 MCHC 32.5 RDW 14.9 H Plt Count 180 Assessment and Plan(PN) - Assessment and Plan (1) delivery delivered Is this a current diagnosis for this admission?: Yes (2) Chronic hypertension with superimposed preeclampsia Is this a current diagnosis for this admission?: Yes (3) History of delivery, currently Is this a current diagnosis for this admission?: Yes (4) Pre-eclampsia Qualifiers: Trimester: third trimester Qualified Code(s): O14.93 - Unspecified pre- eclampsia, third trimester Is this a current diagnosis for this admission?: Yes - Time Spent with Patient Time with patient: Less than 15 minutes Medications reviewed and adjusted accordingly: Yes - Disposition Anticipated Discharge Disposition: Home, Self Care Anticipated Discharge Timeframe: within 24 hours
[2020-10-15] MEDS: IBUPROFEN 800 MG TABLET PO SCH (18:25)
[2020-10-16] MEDS: IBUPROFEN 800 MG TABLET PO SCH ×5 (00:16→23:14)
[2020-10-16] MEDS: LABETALOL HCL 200 MG TABLET PO SCH ×3 (05:34→21:23)
[2020-10-16] MEDS: DOCUSATE SODIUM 100 MG CAPSULE PO SCH ×2 (10:07→18:37)
[2020-10-16] MEDS: PRENATAL VITAMIN W DHA CAPSULE PO SCH (10:07)
--- NOTE | 2020-10-16 10:16 | PDOC DISCHARGE SUMMARY ---
Impression - Admit/DC Date/PCP Admission Date/Primary Care Provider: 10/14/20 05:17 KLEVER CRESPO MD Discharge Date: 10/16/20 - Discharge Diagnosis (1) delivery delivered Is this a current diagnosis for this admission?: Yes (2) Chronic hypertension with superimposed preeclampsia Is this a current diagnosis for this admission?: Yes (3) History of delivery, currently Is this a current diagnosis for this admission?: Yes (4) Pre-eclampsia Is this a current diagnosis for this admission?: Yes - Additional Information Resuscitation Status: Full Code Discharge Diet: Regular Discharge Activity: Balance Activity w/Rest, No Lifting Over 10 Pounds, No Lifting/Push/Pulling, Pelvic Rest, No tub bath Referrals: KLEVER CRESPO MD [Primary Care Provider] - Home Medications: Labetalol HCl [Normodyne 200 mg Tablet] 200 mg PO TID 09/18/20 Prenat 115/Iron Fum/Folic/Dss [ 19 Tablet] 1 tab PO DAILY 09/18/20 Nifedipine [Procardia XL 30 mg Tablet] 30 mg DAILY 09/25/20 HPI Reason(s) for Admission: Ceasarean Section-Repeat, Obstetric Complications, PIH Procedures: NST Intrapartum Procedure(s): : Low Cervical, Transverse Hospital Course 59. Maternal Morbidity (serious complications experinced by the mother associated with labor and delivery: None of the above Results Laboratory Results: WBC 12.7 10^3/uL (4.0-10.5) H 10/15/20 06:33 RBC 3.88 10^6/uL (3.72-5.28) 10/15/20 06:33 Hgb 10.8 g/dL (12.0-15.5) L 10/15/20 06:33 Hct 33.1 % (36.0-47.0) L 10/15/20 06:33 MCV 85 fl (80-97) 10/15/20 06:33 MCH 27.7 pg (27.0-33.4) 10/15/20 06:33 MCHC 32.5 g/dL (32.0-36.0) 10/15/20 06:33 RDW 14.9 % (11.5-14.0) H 10/15/20 06:33 Plt Count 180 10^3/uL (150-450) 11/26/20 06:33 POC Glucose 115 mg/dL (70-110) H 10/14/20 05:52 Blood Type A POSITIVE 10/14/20 06:13 Antibody Screen NEGATIVE 10/14/20 06:13 Crossmatch See Detail 10/14/20 06:13 Plan Plan of Treatment: f/u at [facility] next week for incision check and BP check Time Spent: Less than 30 Minutes
--- NOTE | 2020-10-16 10:40 | PDOC PROGRESS REPORT ---
Subjective-OB Progress Note for:: 10/16/20 Subjective: Pt doing well, no headache, vision changes. Reports light bleeding, reg diet and voiding w/o difficulty. +flatus. Physical Exam (OB) Vital Signs: Temp Pulse Resp BP Pulse Ox 98.1 F 78 14 155/96 H 96 10/16/20 09:45 10/16/20 07:45 10/16/20 07:45 10/16/20 07:45 10/16/20 07:45 Intake & Output 10/15/20 10/16/20 10/17/20 06:59 06:59 06:59 Intake Total 2713 1979 Output Total 3325 3 Balance -612 1976 - PIH/Pre-Eclampsia DTR's: 1 + Clonus: Negative Headache: Absent Epigastric Pain: No Visual Changes: No - Dressing Removed: Yes Incision: Open Closure Type: Surgical Glue - Maternal Morbidity 59. Maternal Morbidity (serious complications experinced by the mother associated with labor and delivery: None of the above - Lochia Lochia Amount: Scant < 10 ml Lochia Color: Rubra/Red - Abdomen Description: Soft, Round Hernia Present: No Fundal Description: Firm, Midline Fundal Height: u/u - u/2 Objective-Diagnostic Laboratory: 10/15/20 06:33 Assessment and Plan(PN) - Assessment and Plan (1) delivery delivered Is this a current diagnosis for this admission?: Yes (2) Chronic hypertension with superimposed preeclampsia Is this a current diagnosis for this admission?: Yes (3) History of delivery, currently Is this a current diagnosis for this admission?: Yes (4) Pre-eclampsia Qualifiers: Trimester: third trimester Qualified Code(s): O14.93 - Unspecified pre-e clampsia, third trimester Is this a current diagnosis for this admission?: Yes Plan:: Add procardia xl 30mg back to bp regimen. Discussed POC with Dr. Hogue, will hold of on discharge until tomorrow since BPs back up to 155/105 and 155/96 to day. - Time Spent with Patient Time with patient: Less than 15 minutes Medications reviewed and adjusted accordingly: Yes - add procardia 30xl back to Labetalol 200TID - Disposition Anticipated Discharge Disposition: Home, Self Care Anticipated Discharge Timeframe: within 24 hours
[2020-10-16] MEDS: NIFEDIPINE 30 MG TAB.ER.24 PO SCH (11:44)
[2020-10-17] MEDS: IBUPROFEN 800 MG TABLET PO SCH ×2 (05:45→12:28)
[2020-10-17] MEDS: LABETALOL HCL 200 MG TABLET PO SCH ×2 (05:46→14:03)
[2020-10-17] MEDS: PRENATAL VITAMIN W DHA CAPSULE PO SCH (10:13)
[2020-10-17] MEDS: DOCUSATE SODIUM 100 MG CAPSULE PO SCH (10:13)
[2020-10-17] MEDS: NIFEDIPINE 30 MG TAB.ER.24 PO SCH (10:13)
[2020-10-17 11:32] VITALS: BP 149/87
== END 2020-10-17 14:10 | disposition home or self-care (01) | DRG 785 ==
LOC: LR 05:17 → 2S 05:39
PROVIDERS: ADMIT Obstetrics & Gynecology Gynecology; ATTEND Obstetrics & Gynecology Gynecology
PROC: 10D00Z1 Extraction of Products of Conception, Low, Open Approach (ICD-10-PCS; principal; 2020-10-14)
PROC: 0UL70CZ Occlusion of Bilateral Fallopian Tubes with Extraluminal Device, Open Approach (ICD-10-PCS; 2020-10-14)
PROC: 3E0234Z Introduction of Serum, Toxoid and Vaccine into Muscle, Percutaneous Approach (ICD-10-PCS; 2020-10-14)
DX: O11.4 Pre-existing hypertension with pre-eclampsia, complicating childbirth (principal); Z30.2 Encounter for sterilization; O34.211 Maternal care for low transverse scar from previous cesarean delivery; O24.425 Gestational diabetes mellitus in childbirth, controlled by oral hypoglycemic drugs; O99.214 Obesity complicating childbirth; O99.824 Streptococcus B carrier state complicating childbirth; Z23 Encounter for immunization; Z28.21 Immunization not carried out because of patient refusal; Z3A.37 37 weeks gestation of pregnancy; Z37.0 Single live birth
CPT/HCPCS: 1961; 36415; 82962; 85027; 86850; 86900; 86901; 86920; 94760; 94799; J0131; J0360; J1885; J2210; J2250; J2370; J2405; J2590; J3010; J3490; J7120